=== PATIENT | female | born 1995 | race Two or more races ===

== ENCOUNTER 2018-03-14 12:59 | Emergency (ER) | payer OTHER ==
[2018-03-14 13:04] VITALS: BP 123/63
[2018-03-14] MEDS ORDERED: IBUPROFEN 600 MG TABLET PO ONE (14:22)
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
== END 2018-03-14 14:32 | disposition home or self-care (01) ==
LOC: ER 12:59
DX: S39.012A Strain of muscle, fascia and tendon of lower back, initial encounter (principal); M54.9 Dorsalgia, unspecified; V87.7XXA Person injured in collision between other specified motor vehicles (traffic), initial encounter
CPT/HCPCS: 99283

== ENCOUNTER → 2018-07-12 | Outpatient (CLI) | payer OTHER ==
--- NOTE | 2018-07-12 13:19 | WOMENS IMAGING REPORT ---
EXAM DESCRIPTION: U/S PELVIS NON-OB COMPLETED DATE/TIME: 07/12/2018 12:35 pm REASON FOR STUDY: R10.2 PELVIC AND PERINEAL PAIN R10.2 PELVIC AND PERINEAL PAIN COMPARISON: None. TECHNIQUE: Dynamic and static grayscale images acquired of the pelvis via transabdominal approach an d recorded on PACS. Additional selected color Doppler and spectral images recorded. LIMITATIONS: None. FINDINGS: UTERUS: Contour normal. No mass. ENDOMETRIAL STRIPE: No focal or generalized thickening. No masses. CERVIX: No nabothian cysts. RIGHT OVARY AND DOPPLER: Ovary not visualized. LEFT OVARY AND DOPPLER: Ovary not visualized. FREE FLUID: None noted. OTHER: No other significant finding. MEASUREMENTS: UTERUS: 8.4 x 3.2 x 5.0 cm. ENDOMETRIAL STRIPE: 5.6 mm. RIGHT OVARY: Not visualized. LEFT OVARY: Not visualized. IMPRESSION: Normal endometrium an uterus. Ovaries are obscured by overlying bowel gas. TECHNICAL DOCUMENTATION: JOB ID: [id number] [employer]- All Rights Reserved Rev-08/13 Reading location - IP/workstation name: [email or web address]
== END ==
LOC: WI 11:33
PROVIDERS: ATTEND Nurse Practitioner Family
DX: R10.2 Pelvic and perineal pain (principal)
CPT/HCPCS: 76856

== ENCOUNTER → 2019-03-06 | Outpatient (CLI) | payer BC, OTHER ==
--- NOTE | 2019-03-06 11:35 | RADIOLOGY REPORT (SQ) ---
EXAM DESCRIPTION: U/S NON OB PEL W/DOPPLER COMPLETED DATE/TIME: 03/06/2019 8:00 am REASON FOR STUDY: PELVIC AND PERINEAL PAIN (R10.2), UNSPEC OVARIAN CYST, LEFT SIDE (N83.202) R10.2 PELVIC AND PERINEAL PAINN83.202 UNSPECIFIED OVARIAN CYST, LEFT SIDE COMPARISON: 07/26/2018 TECHNIQUE: Dynamic and static grayscale images acquired of the pelvis via transabdominal approach an d recorded on PACS. Additional selected color Doppler and spectral images recorded. LIMITATIONS: None. FINDINGS: UTERUS: Contour normal. No mass. ENDOMETRIAL STRIPE: No focal or generalized thickening. No masses. CERVIX: No nabothian cysts. RIGHT OVARY AND DOPPLER: Normal size. 2 cm cyst. No worrisome masses. Normal arterial vascular flow without evidence for torsion. LEFT OVARY AND DOPPLER: Normal size. No worrisome masses. Normal arterial vascular flow without evide nce for torsion. FREE FLUID: None noted. OTHER: No other significant finding. IMPRESSION: Small cyst right ovary. TECHNICAL DOCUMENTATION: JOB ID: [id number]- All Rights Reserved Rev-08/13 Reading location - IP/workstation name: [email or web address]
== END ==
LOC: RAD 07:21
PROVIDERS: ATTEND Family Medicine
DX: N83.202 Unspecified ovarian cyst, left side (principal); N83.291 Other ovarian cyst, right side; R10.2 Pelvic and perineal pain
CPT/HCPCS: 76856; 93976